=== PATIENT | female | born 2005 | race African-American/Black ===

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

== ENCOUNTER 2024-05-04 06:44 | Emergency (ER) | payer OTHER ==
[~2024-05-04] VITALS: Ht 167.6 cm; Wt 84.1 kg
[~2024-05-04 06:44] MED LIST: BENA25CA4 PO; PRED20TA PO
[2024-05-04 08:10] LABS: HEMATOCRIT 39.7 % (36.0-47.0); HEMOGLOBIN 12.9 g/dl (12.0-15.5); MEAN CORPUSCULAR HEMOGLOBIN 29.4 pg (27.0-33.0); MEAN CORPUSCULAR HGB CONC 32.5 g/dl (32.0-36.5); MEAN CORPUSCULAR VOLUME 90.4 fl (80.0-96.0); PLATELET COUNT, AUTOMATED 356 10^3/uL (150-450); RED BLOOD COUNT 4.39 10^6/uL (4.00-5.40); WHITE BLOOD COUNT 7.3 10^3/uL (4.0-10.0)
[2024-05-04 08:20] LABS: APPEARANCE, URINE CLEAR (CLEAR); BACTERIA, URINE AUTO NEGATIVE (NEGATIVE); BILIRUBIN, URINE AUTO NEGATIVE (NEGATIVE); BLOOD, URINE BLOOD NEGATIVE (NEGATIVE); COLOR, URINE YELLOW (YELLOW); GLUCOSE, URINE (UA) AUTO NEGATIVE (NEGATIVE); KETONE, URINE AUTO NEGATIVE (NEGATIVE); LEUKOCYTE ESTERASE, URINE AUTO NEGATIVE (NEGATIVE); MUCUS, URINE SMALL (NEGATIVE); NITRITE, URINE AUTO NEGATIVE (NEGATIVE); PROTEIN, URINE AUTO NEGATIVE (NEGATIVE); RBC, URINE AUTO 0 /HPF (0-3); SPECIFIC GRAVITY URINE AUTO 1.019 (1.002-1.035); SQUAMOUS EPITHELIAL CELL UR AU 1 /HPF (0-6); UROBILINOGEN, URINE AUTO 0.2 mg/dL (0.0-2.0); WBC, URINE AUTO 0 /HPF (0-3)
[2024-05-04 09:20] LABS: Trichomonas vaginalis (AMP) NOT DETECTED (NEGATIVE)
[2024-05-04 09:43] LABS: GC DNA AMPLIFICATION NEGATIVE (NEGATIVE)
[2024-05-04 09:46] VITALS: BP 121/62; TEMP 99.7; O2SAT 100
== END 2024-05-04 10:01 | disposition home or self-care (01) ==
LOC: M ED 06:44 → EDBD 06:44 → M ED 10:01
DX: O26.891 Other specified pregnancy related conditions, first trimester (principal); R10.9 Unspecified abdominal pain; Z3A.01 Less than 8 weeks gestation of pregnancy

== ENCOUNTER → 2024-06-07 | Outpatient (CLI) | payer OTHER ==
[2024-06-07 17:43] LABS: HEMATOCRIT 40.5 % (36.0-47.0); HEMOGLOBIN 13.2 g/dl (12.0-15.5); MEAN CORPUSCULAR HEMOGLOBIN 29.7 pg (27.0-33.0); MEAN CORPUSCULAR HGB CONC 32.6 g/dl (32.0-36.5); PLATELET COUNT, AUTOMATED 259 10^3/uL (150-450); RED BLOOD COUNT 4.45 10^6/uL (4.00-5.40); WHITE BLOOD COUNT 3.6 10^3/uL (4.0-10.0)
[2024-06-07 18:29] LABS: HIV 1&2 SCREEN NEGATIVE (NEGATIVE)
[2024-06-07 18:37] LABS: HEPATITIS C VIRUS ABY INDEX 0.11 INDEX (<0.8)
[2024-06-07 19:01] LABS: GC DNA AMPLIFICATION NEGATIVE (NEGATIVE)
== END ==
LOC: M PLALAB 15:39
PROVIDERS: ATTEND Advanced Practice Midwife
DX: Z34.01 Encounter for supervision of normal first pregnancy, first trimester (principal)

== ENCOUNTER 2024-07-12 21:00 | Emergency (ER) | payer OTHER ==
[~2024-07-12] VITALS: Ht 167.6 cm; Wt 82.3 kg
[2024-07-13] MEDS: NS (Normal Saline) 0.9% 1,000 ML IV ONE (04:19)
[2024-07-13] MEDS: ONDANSETRON 4MG 2ML VIAL IV ONE (04:19)
[2024-07-13 04:28] LABS: HEMATOCRIT 36.8 % (36.0-47.0); HEMOGLOBIN 12.5 g/dl (12.0-15.5); MEAN CORPUSCULAR HEMOGLOBIN 30.5 pg (27.0-33.0); MEAN CORPUSCULAR VOLUME 89.8 fl (80.0-96.0); PLATELET COUNT, AUTOMATED 297 10^3/uL (150-450); WHITE BLOOD COUNT 5.9 10^3/uL (4.0-10.0)
[2024-07-13 04:50] LABS: ALBUMIN 3.2 G/DL (3.2-5.2); ALKALINE PHOSPHATASE 62 U/L (35-104); ALT/SGPT 23 U/L (7.0-40); AST/SGOT 25 U/L (<34); BILIRUBIN,TOTAL 0.3 MG/DL (0.3-1.2); BLOOD UREA NITROGEN 7 MG/DL (9-23); CALCIUM LEVEL 9.4 MG/DL (8.5-10.1); CARBON DIOXIDE LEVEL 23 MMOL/L (20-31); CHLORIDE LEVEL 106 MMOL/L (98-107); CREATININE FOR GFR 0.52 MG/DL (0.55-1.30); GLUCOSE, FASTING 68 MG/DL (60-100); POTASSIUM SERUM 4.3 MMOL/L (3.5-5.1); SODIUM LEVEL 138 MMOL/L (136-145)
[2024-07-13 05:05] LABS: HCG, SERUM QUANTITATIVE 51899.5 MIU/ML (<4.2)
[2024-07-13 07:22] VITALS: BP 105/56; TEMP 97.4; O2SAT 99
[2024-07-13] MEDS ORDERED: ONDA-282 PO (07:41)
== END 2024-07-13 08:34 | disposition home or self-care (01) ==
LOC: M ED 21:48
DX: O99.612 Diseases of the digestive system complicating pregnancy, second trimester (principal); Z3A.15 15 weeks gestation of pregnancy
CPT/HCPCS: 76815; 80053; 81001; 84702; 85027; 87086; 87486; 87581; 87633; 87798; 96374; 99284; G0463; J2405

== ENCOUNTER → 2024-07-13 | Outpatient (REF) | payer OTHER ==
[~2024-07-13] MED LIST changes: +ONDA-282 PO
[2024-07-13 14:37] LABS: APPEARANCE, URINE CLEAR (CLEAR); BACTERIA, URINE AUTO NEGATIVE (NEGATIVE); BILIRUBIN, URINE AUTO NEGATIVE (NEGATIVE); BLOOD, URINE BLOOD NEGATIVE (NEGATIVE); COLOR, URINE YELLOW (YELLOW); GLUCOSE, URINE (UA) AUTO 1+ mg/dL (NEGATIVE); KETONE, URINE AUTO NEGATIVE (NEGATIVE); LEUKOCYTE ESTERASE, URINE AUTO NEGATIVE (NEGATIVE); MUCUS, URINE SMALL (NEGATIVE); NITRITE, URINE AUTO NEGATIVE (NEGATIVE); PROTEIN, URINE AUTO NEGATIVE (NEGATIVE); RBC, URINE AUTO 1 /HPF (0-3); SPECIFIC GRAVITY URINE AUTO 1.024 (1.002-1.035); SQUAMOUS EPITHELIAL CELL UR AU 2 /HPF (0-6); UROBILINOGEN, URINE AUTO 0.2 mg/dL (0.0-2.0); WBC, URINE AUTO 1 /HPF (0-3)
== END ==
LOC: M SFHCWAGY 12:53
PROVIDERS: ATTEND Obstetrics & Gynecology
DX: R10.2 Pelvic and perineal pain (principal)

== ENCOUNTER → 2024-08-16 | Outpatient (CLI) | payer OTHER | LOC: M PLALAB 15:16 | PROVIDERS: ATTEND Obstetrics & Gynecology | DX: Z34.80 Encounter for supervision of other normal pregnancy, unspecified trimester (principal) ==

== ENCOUNTER 2024-10-30 00:34 | Emergency (ER) | payer OTHER ==
[2024-10-30] MEDS ORDERED: PRENTAB9 PO (01:56)
== END 2024-10-30 00:42 | disposition left against medical advice (07) ==
LOC: M ED 00:34
DX: Z53.21 Procedure and treatment not carried out due to patient leaving prior to being seen by health care provider (principal)

== ENCOUNTER 2024-10-30 00:42 | Outpatient (CLI) | payer OTHER ==
[~2024-10-30] VITALS: Ht 167.6 cm; Wt 83.9 kg
[2024-10-30 01:06] VITALS: BP 123/78
[2024-10-30] MEDS ORDERED: PRENTAB9 PO (01:56)
== END 2024-10-30 01:33 | disposition home or self-care (01) ==
LOC: M LDO 00:42
PROVIDERS: ATTEND Obstetrics & Gynecology
DX: O26.893 Other specified pregnancy related conditions, third trimester (principal); O99.343 Other mental disorders complicating pregnancy, third trimester; N89.8 Other specified noninflammatory disorders of vagina; F41.0 Panic disorder [episodic paroxysmal anxiety]; Z3A.31 31 weeks gestation of pregnancy
CPT/HCPCS: 59025; G0463

== ENCOUNTER → 2024-10-31 | Outpatient (CLI) | payer OTHER ==
[~2024-10-31] MED LIST changes: +PRENTAB9 PO
[2024-10-31 12:49] LABS: PLATELET COUNT, AUTOMATED 249 10^3/uL (150-450)
[2024-10-31 13:14] LABS: GLUCOSE CHALLENGE TEST 1 HOUR 141 MG/DL (LESS THAN 140)
[2024-10-31 13:47] LABS: HIV 1&2 SCREEN NEGATIVE (NEGATIVE)
[2024-10-31 13:54] LABS: HEPATITIS C VIRUS ABY INDEX < 0.02 INDEX (<0.8)
[2024-10-31 14:06] LABS: Trichomonas vaginalis (AMP) NOT DETECTED (NEGATIVE)
[2024-10-31 14:29] LABS: GC DNA AMPLIFICATION NEGATIVE (NEGATIVE)
== END ==
LOC: M PLALAB 10:37
PROVIDERS: ATTEND Obstetrics & Gynecology
DX: Z34.80 Encounter for supervision of other normal pregnancy, unspecified trimester (principal)

== ENCOUNTER → 2024-11-11 | Outpatient (CLI) | payer OTHER ==
[~2024-11-11] MED LIST changes: +CARA1TAB6 PO; +PROT1TAB2 PO
== END ==
LOC: M LAB 07:49
PROVIDERS: ATTEND Obstetrics & Gynecology
DX: Z34.80 Encounter for supervision of other normal pregnancy, unspecified trimester (principal)

== ENCOUNTER → 2024-11-21 | Outpatient (CLI) | payer OTHER ==
[2024-11-21 15:30] LABS: PLATELET COUNT, AUTOMATED 291 10^3/uL (150-450)
[2024-11-21 15:39] LABS: LDH LACTATE DEHYDROGENASE 122 U/L (120-246)
[2024-11-21 15:40] LABS: ALT/SGPT 14 U/L (7.0-40); AST/SGOT 18 U/L (<34); CREATININE FOR GFR 0.69 MG/DL (0.55-1.30); GLOMERULAR FILTRATION RATE > 90.0 (>60)
[2024-11-21 15:50] LABS: TOTAL PROTEIN,RANDOM URINE 15.2 MG/DL (0.0-14.0)
== END ==
LOC: M PLALAB 12:11
PROVIDERS: ATTEND Nurse Practitioner Family
DX: O16.3 Unspecified maternal hypertension, third trimester (principal)

== ENCOUNTER 2024-11-22 05:58 | Emergency (ER) | payer OTHER ==
[~2024-11-22] VITALS: Ht 167.6 cm; Wt 84.3 kg
[~2024-11-22 05:58] MED LIST changes: -CARA1TAB6 PO; -PROT1TAB2 PO
[2024-11-22 06:02] VITALS: TEMP 97.4
[2024-11-22] MEDS: PANTOPRAZOLE 40MG VIAL IV ONE (07:45)
[2024-11-22] MEDS: SUCRALFATE SUSP 1GM/10ML UD PO ONE (07:45)
[2024-11-22 07:51] LABS: BASO # 0.0 10^3/uL (0.0-0.2); BASO % 0.6 % (0.0-1.0); EOS # 0.0 10^3/uL (0.0-0.5); EOS % 0.4 % (0.0-3.0); LYMPH # 1.4 10^3/uL (1.5-5.0); LYMPH % 18.9 % (24.0-44.0); MONO # 0.8 10^3/uL (0.0-0.8); MONO % 10.6 % (2.0-8.0); NEUTROPHILS # 4.9 10^3/uL (1.5-8.5); NEUTROPHILS % 68.8 % (36.0-66.0); PLATELET COUNT, AUTOMATED 256 10^3/uL (150-450)
[2024-11-22 08:11] LABS: ALT/SGPT 16 U/L (7.0-40); AST/SGOT 16 U/L (<34); CALCIUM LEVEL 9.0 MG/DL (8.5-10.1); CARBON DIOXIDE LEVEL 22 MMOL/L (20-31); CHLORIDE LEVEL 103 MMOL/L (98-107); CREATININE FOR GFR 0.67 MG/DL (0.55-1.30); GLOMERULAR FILTRATION RATE > 90.0 (>60); POTASSIUM SERUM 4.0 MMOL/L (3.5-5.1); SODIUM LEVEL 139 MMOL/L (136-145)
[2024-11-22 08:21] LABS: INR 0.97
[2024-11-22] MEDS: ONDANSETRON 4MG ORAL DISINTEGRATING TAB PO ONE (09:12)
[2024-11-22] MEDS ORDERED: PROT1TAB2 PO (09:30)
[2024-11-22] MEDS ORDERED: ONDA-282 PO (09:30)
[2024-11-22] MEDS ORDERED: CARA1TAB6 PO (09:30)
[2024-11-22 09:49] VITALS: BP 131/66; O2SAT 99
== END 2024-11-22 09:57 | disposition home or self-care (01) ==
LOC: M ED 05:58
DX: O21.8 Other vomiting complicating pregnancy (principal); O99.343 Other mental disorders complicating pregnancy, third trimester; Z3A.32 32 weeks gestation of pregnancy
CPT/HCPCS: 80053; 85025; 85610; 86850; 86900; 86901; 99284; J2470

== ENCOUNTER → 2024-11-22 | Outpatient (CLI) | payer OTHER | LOC: M WHC 13:55 | PROVIDERS: ATTEND Nurse Practitioner Family | DX: Z34.03 Encounter for supervision of normal first pregnancy, third trimester (principal); Z3A.34 34 weeks gestation of pregnancy ==

== ENCOUNTER → 2024-12-05 | Outpatient (REF) | payer OTHER ==
[~2024-12-05] MED LIST changes: +CARA1TAB6 PO; +PROT1TAB2 PO
== END ==
LOC: M SFHCWAGY 14:55
PROVIDERS: ATTEND Specialist
DX: Z3A.36 36 weeks gestation of pregnancy (principal)

== ENCOUNTER 2024-12-06 23:24 | Outpatient (CLI) | payer OTHER ==
[~2024-12-06] VITALS: Ht 167.6 cm; Wt 86.5 kg
[2024-12-06 23:53] VITALS: BP 122/81
[2024-12-07 01:05] VITALS: BP 120/62
[2024-12-15] MEDS ORDERED: IBUP80TA PO (12:19)
[2024-12-15] MEDS ORDERED: COLA100C5 PO (12:19)
== END 2024-12-07 02:04 | disposition home or self-care (01) ==
LOC: M LDO 23:24
PROVIDERS: ATTEND Obstetrics & Gynecology
DX: O26.893 Other specified pregnancy related conditions, third trimester (principal); O47.03 False labor before 37 completed weeks of gestation, third trimester; R10.2 Pelvic and perineal pain; Z3A.36 36 weeks gestation of pregnancy
CPT/HCPCS: 59025; G0463

== ENCOUNTER 2025-01-25 08:51 | Emergency (ER) | payer OTHER ==
[~2025-01-25] VITALS: Ht 167.6 cm; Wt 75.5 kg
[~2025-01-25 08:51] MED LIST changes: +COLA100C5 PO; +IBUP80TA PO
[2025-01-25 08:54] VITALS: TEMP 97.3
[2025-01-25 11:15] LABS: BASO # 0.1 10^3/uL (0.0-0.2); BASO % 1.0 % (0.0-1.0); EOS # 0.1 10^3/uL (0.0-0.5); EOS % 1.4 % (0.0-3.0); LYMPH # 2.1 10^3/uL (1.5-5.0); LYMPH % 41.2 % (24.0-44.0); MONO # 0.4 10^3/uL (0.0-0.8); MONO % 8.0 % (2.0-8.0); NEUTROPHILS # 2.5 10^3/uL (1.5-8.5); NEUTROPHILS % 48.2 % (36.0-66.0); PLATELET COUNT, AUTOMATED 353 10^3/uL (150-450)
[2025-01-25 11:18] LABS: KETONE, URINE AUTO RFX NEGATIVE (NEGATIVE); LEUKOCYTE ESTERASE UR AUTO RFX NEGATIVE (NEGATIVE); MUCUS, URINE RFX SMALL (NEGATIVE); NITRITE, URINE AUTO RFX NEGATIVE (NEGATIVE); RBC, URINE AUTO RFX 0 /HPF (0-3); SQUAM EPITHELIAL CELL UR AURFX 1 /HPF (0-6); WBC, URINE AUTO RFX 1 /HPF (0-3)
[2025-01-25 11:44] LABS: ALT/SGPT 13 U/L (7.0-40); AST/SGOT 21 U/L (<34); CALCIUM LEVEL 9.3 MG/DL (8.5-10.1); CARBON DIOXIDE LEVEL 24 MMOL/L (20-31); CHLORIDE LEVEL 106 MMOL/L (98-107); CREATININE FOR GFR 0.96 MG/DL (0.55-1.30); GLOMERULAR FILTRATION RATE 86.9 (>60); POTASSIUM SERUM 4.4 MMOL/L (3.5-5.1); SODIUM LEVEL 141 MMOL/L (136-145)
[2025-01-25 11:57] LABS: HCG, SERUM QUALITATIVE NEGATIVE (NEGATIVE)
[2025-01-25 13:04] VITALS: BP 125/55; O2SAT 99
== END 2025-01-25 13:10 | disposition home or self-care (01) ==
LOC: M ED 08:51
DX: R10.A2 Flank pain, left side (principal)